=== PATIENT | female | born 1980 | race Caucasian/White ===

== ENCOUNTER 2020-08-29 19:31 | Emergency (ER) | payer MEDICAID, SELFPAY | END 2020-08-29 21:06 | disposition left against medical advice (07) | PROVIDERS: Emergency Provider Emergency Medicine | DX: M79.673 Pain in unspecified foot (principal) ==

== ENCOUNTER 2021-09-27 10:27 | Outpatient (REF) | payer MEDICAID, SELFPAY ==
[2021-09-27] MEDS: Barium Sulfate Oral (Mocha) 450 ML ORAL.SUSP 900 ML PO (14:32)
== END 2021-09-27 10:28 | disposition home or self-care (01) ==
LOC: HO.CT 10:27
PROVIDERS: PCP Emergency Medicine; Visit Provider Emergency Medicine
DX: R19.00 Intra-abdominal and pelvic swelling, mass and lump, unspecified site (principal)

== ENCOUNTER 2021-12-19 14:18 | Outpatient (REF) | payer MEDICAID, SELFPAY ==
--- NOTE | ~2021-12-19 | CT_ITS ---
EXAMINATION: CT ABDOMEN AND PELVIS WITH CONTRAST CLINICAL INFORMATION: Localized swelling, mass, lump COMPARISON: CT abdomen and pelvis noncontrast 03/31/2018 TECHNIQUE: Multidetector volumetric images were obtained from the superior aspect of the liver through the pubic symphysis following administration 85 mL of Omnipaque 350 intravenous contrast. Sagittal and coronal reformatted images were obtained on the technologist's workstation. Oral contrast: Yes This CT examination was performed using dose optimization techniques as appropriate, variously including the following: *Automated exposure control *Adjustment of mA and/or kV according to patient size (this includes techniques or standardized protocols for targeted exams where dose is matched to indication/reason for exam; i.e. extremities or head) *Use of iterative reconstruction technique DLP: 209 mGy-cm FINDINGS: LUNG BASES: The visualized lung bases are unremarkable. LIVER, GALLBLADDER, AND BILIARY TREE: Liver is smooth in contour and homogeneous. There is no focal hepatic parenchymal lesion or intrahepatic ductal dilatation. There is probable Omayra's lobe 20.5 cm in vertical dimension. The AP dimension is only 15 cm. The gallbladder is unremarkable with no evidence of radiopaque gallstones, gallbladder wall thickening, or obvious pericholecystic inflammatory changes. PANCREAS: Unremarkable. SPLEEN: Unremarkable. ADRENAL GLANDS: Unremarkable. KIDNEYS AND URETERS: The kidneys are normal in size, shape, and attenuation. No hydronephrosis, hydroureter, or calculi seen. No perinephric stranding. BLADDER: Unremarkable. GASTROINTESTINAL TRACT: Borderline sliding hiatal hernia. There is moderate stool throughout the colon. The appendix is normal. There is no bowel obstruction or focal intestinal inflammatory changes. Some trace ascites is present in the deep pelvis. No abdominal ascites or fluid collection. No pneumatosis or free air. ABDOMINAL WALL: There is a periumbilical hernia 11:00 position umbilicus from the umbilicus with fluid-filled hernia sac measuring 1.9 cm in thickness, 3.6 cm across, and 2.7 cm in vertical dimension. Abdominal wall defect is estimated at 1.2 cm. No groin hernia. LYMPH NODES: No lymphadenopathy. VASCULAR: Unremarkable. PELVIC VISCERA: Small amount of ascites in the cul-de-sac. Uterus is not clearly visualized similar to prior study, possible prior hysterectomy. No pelvic mass. OSSEOUS STRUCTURES: Unremarkable. CT/CT abdomen pelvis w con IMPRESSION: -Right superolateral fluid containing periumbilical hernia 1.9 x 3.6 x 2.7 cm. Abdominal wall defect estimated at 1.2 cm. -Trace pelvic ascites. No bowel obstruction or focal inflammatory changes. No adnexal mass. Fleischner guidelines were followed.
[2021-12-19] MEDS: iohexoL 350 MG/ML 100 ML INFUS..BTL IV (16:50)
[2021-12-19] MEDS: Barium Sulfate Oral (Vanilla) 450 ML ORAL.SUSP 900 ML PO (16:51)
== END 2021-12-19 14:19 | disposition home or self-care (01) ==
LOC: HO.CT 14:18
PROVIDERS: PCP Emergency Medicine; Visit Provider Emergency Medicine
DX: R22.2 Localized swelling, mass and lump, trunk (principal)
CPT/HCPCS: 74177; Q9967

== ENCOUNTER 2022-07-21 13:35 | Emergency (ER) | payer OTHER, SELFPAY ==
[2022-07-21 13:38] VITALS: BP 131/80; PULSE 92; RESP 18; TEMP 36.3; O2SAT 96; BMI 22.0
--- NOTE | 2022-07-21 13:39 | ED.GENADULT ---
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 (1+) H (Neg-Trace) mg/dL Urine Glucose (UA) Negative (Negative) mg/dL Urine Ketones Trace (Negative) mg/dL Urine Blood Negative (Negative) Urine Nitrite Negative (Negative) Ur Leukocyte Esterase Trace H (Negative) Urine RBC 3-5 H (0-2) /HPF Urine WBC 11-20 H (0-5) /HPF Ur Squamous Epith Cells 6-10 (0-2) /HPF Urine Bacteria None Seen (None Seen) Hyaline Casts 0-2 (0-2) /LPF Urine Test (NEGATIVE) Urine Opiates Screen (Not Detect) Urine Fentanyl Screen (Not Detect) Ur Barbiturates Screen (Not Detect) Ur Phencyclidine Scrn (Not Detect) Ur Amphetamines Screen (Not Detect) U Benzodiazepines Scrn (Not Detect) Urine Cocaine Screen (Not Detect) U Marijuana (THC) Screen (Not Detect) Ethyl Alcohol < 10 mg/dL COVID-19 (CAROLIN) (Negative) COVID-19 Clin Com <Yossi Quintero MD - Last Filed: 07/22/22 00:36> Discharge Plan Discharge Clinical Impression: Polysubstance abuse, Abdominal hernia <RHETT Mascorro - Last Filed: 07/21/22 13:46> Patient Disposition: Still a Patient <RHETT Mascorro - Last Filed: 07/21/22 13:46> Instructions: Inguinal Hernia (ED), Umbilical Hernia (ED), Polysubstance Abuse (ED) <RHETT Mascorro - Last Filed: 07/21/22 13:46> Prescriptions: No Action methadone 10 mg/mL Syringe 100 mg PO DAILY <RHETT Mascorro - Last Filed: 07/21/22 13:46>
[2022-07-21 14:11] LABS: MANUAL DIFF FLAG NO
[2022-07-21 14:16] LABS: Basophils Percent Auto 0.3 % (0-2); Eosinophils Percent Auto 0.3 % (0-4); Hematocrit 36.3 % (37.0-47.0); Hemoglobin 11.7 g/dl (12.0-16.0); Imm Gran Abs Auto 0.03 X10*3/uL (0.00-0.03); Imm Gran Pct Auto 0.4 % (0.0-0.4); Mean Corpuscular HGB Conc 32.2 g/dl (31.0-35.0); Mean Corpuscular Hemoglobin 26.5 pg (27.0-33.0); Mean Corpuscular Volume 82.1 fL (80.0-98.0); Mean Platelet Volume 8.8 fL (9.4-12.3); Monocytes Absolute Auto 0.8 X10*3/uL (0.1-1.2); Monocytes Percent Auto 9.9 % (2-11); Neutrophils Absolute Auto 4.7 x10*3/uL (2.0-8.3); Neutrophils Percent Auto 62.1 % (45-73); Platelet Count 232 X10*3/uL (160-400); Red Blood Count 4.42 X10*6/uL (4.20-5.50); Red Cell Distribution Width 14.2 % (11.0-16.0); White Blood Count 7.6 X10*3/uL (4.8-10.8)
[2022-07-21 14:19] LABS: Appearance Urine Turbid; Color Urine Dark Yellow; Glucose Urine UA Negative (Negative); Leukocyte Esterase Urine Small (1+) (Negative); Nitrite Urine Negative (Negative); PH 5.5 (5.0-9.0); Specific Gravity - Urine >= 1.030 (1.005-1.025); UMIC TRIGGER UACC YES; Urine Blood Negative (Negative); Urine Ketones Trace mg/dL (Negative); Urine Protein 30 (1+) mg/dL (Neg-Trace)
[2022-07-21 14:21] LABS: UPreg QC Valid YES; Urine Pregnancy NEGATIVE (NEGATIVE)
[2022-07-21 14:31] LABS: Amphetamine Screen Urine Not Detected (Not Detect); Barbiturates, Urine Not Detected (Not Detect); Benzodiazepines Screen Urine Not Detected (Not Detect); Cannabinoid Screen Urine Not Detected (Not Detect); Cocaine Screen Urine POSITIVE (Not Detect); Fentanyl, urine POSITIVE (Not Detect); Opiate Screen Urine POSITIVE (Not Detect); Phencyclidine Screen Urine Not Detected (Not Detect)
[2022-07-21 14:31] LABS: COVID-19 Test Negative (Negative); IDNOW Serial# BCCEAD1C
[2022-07-21 14:42] LABS: Alanine Aminotransferase 38 U/L (0-31); Alkaline Phosphatase 105 U/L (39-117); Anion Gap 13 (12-20); Aspartate Amino Transferase 36 U/L (5-31); Bilirubin Direct 0.2 mg/dL (0.0-0.5); Bilirubin Total 0.5 mg/dL (0.0-1.0); Blood Urea Nitrogen 14 mg/dL (9-16); Calcium 9.1 mg/dL (8.4-10.2); Carbon Dioxide 29 mmol/L (22-29); Chloride 104 mmol/L (96-108); Creatinine Clr Calc Pharmacy 101.9; Estimated Glomerular Filt Rate > 60; Glucose Random 114 mg/dL (60-115); Magnesium 1.7 mg/dL (1.6-2.6); Potassium 3.5 mmol/L (3.3-5.1); Sodium 142 mmol/L (135-145); Total Protein 7.6 g/dL (6.5-8.0)
[2022-07-21 14:43] LABS: Bacteria Urine 4+ (None Seen); RBC Urine 0-2 /HPF (0-2); Squamous Epithelial Cell Urine >20 /HPF (0-2); UACC Culture Trigger YES; WBC Urine 21-50 /HPF (0-5)
[2022-07-21 14:46] LABS: Ethanol < 10 mg/dL
[2022-07-21 16:41] VITALS: BP 132/64; PULSE 68; RESP 16; TEMP 37.1; O2SAT 98
--- NOTE | 2022-07-21 16:42 | MHC.EDTECH ---
THIS PCT ASSUMED CARE OF PATIENT AT 1640 ,VITALS SIGN TAKEN ,PROVIDER IN ROOM ,CALL CULVER WITHIN REACH .
[2022-07-21] MEDS: diazePAM 2 MG TABLET 4 MG PO (17:04)
[2022-07-21] MEDS: cloNIDine HCL 0.2 MG TABLET PO (17:04)
[2022-07-21] MEDS: Ondansetron ODT 4 MG TAB.RAPDIS TRANSLINGU (17:04)
--- NOTE | 2022-07-21 17:08 | PC.NURSE ---
Pt alert/oriented. Reports two abd hernias 8/10 pain. Also reports urinary sx including frequency, odor, and burning although been on Macrobid x 7 days. Also reports no bowel movement x 3 days. Denies n/v. Medicated as charted
[2022-07-21 17:23] LABS: Appearance Urine Clear; Color Urine Dark Yellow; Glucose Urine UA Negative (Negative); Leukocyte Esterase Urine Trace (Negative); Nitrite Urine Negative (Negative); PH 5.5 (5.0-9.0); Specific Gravity - Urine >= 1.030 (1.005-1.025); UMIC TRIGGER UACC YES; Urine Blood Negative (Negative); Urine Ketones Trace mg/dL (Negative); Urine Protein 30 (1+) mg/dL (Neg-Trace)
[2022-07-21 17:36] LABS: Bacteria Urine None Seen (None Seen); Hyaline Casts Urine 0-2 /LPF (0-2); UACC Culture Trigger YES
[2022-07-21 18:00] VITALS: BP 93/39; PULSE 58; RESP 16; TEMP 36.6; O2SAT 97
--- NOTE | 2022-07-21 18:00 | MHC.EDTECH ---
1800 ROUNDING AND VITALS SIGN DONE ,PATIENT ASKED FOR LEXIE SAMEERA ,PATIENT WATCHING TELEVISION ,CALL CULVER WITHIN REACH .
[2022-07-21] MEDS: Amoxicillin/Potassium Clav 875 MG TABLET PO (18:37)
--- NOTE | 2022-07-21 19:45 | MHC.RECOVSUP ---
? Reason for consult Recovery support o Current location: ED6 o Identified substance use concern: Heroin - Withdrawal - Seeking ATS (detox) - Support ? Intervention: o Community resources provided o Harm reduction discussion ? Plan: o Patient to follow up with [facility] after discharge ? Additional information: Patient seeking help to a ATS.. Patient has a bed pending at [facility].. Paper work being Fax by Care Team
[2022-07-21 19:56] VITALS: BP 94/41; PULSE 63; RESP 16; TEMP 36.6; O2SAT 97
--- NOTE | 2022-07-21 19:57 | MHC.EDTECH ---
2000 ROUNDING DONE ,PATIENT VITALS SIGN TAKEN ,PATIENT WATCHING TELEVISION ,ASKED FOR LEXIE SAMEERA AND [employer] .
--- NOTE | 2022-07-21 21:34 | MHC.CARE ---
T/W spoke with the [facility] who said that Kassidy's referral with be reviewed in the morning if accepted , they will call to speak with her tomorrow, so that the intake can be completed.
[2022-07-21 22:00] VITALS: BP 97/59; PULSE 70; RESP 16; TEMP 36.2; O2SAT 97
[2022-07-22] VITALS: BP 97/57; PULSE 67; RESP 13; TEMP 36.8; O2SAT 98
[2022-07-22 00:31] VITALS: BP 122/76
[2022-07-22] MEDS: Ondansetron ODT 4 MG TAB.RAPDIS TRANSLINGU (00:52)
[2022-07-22] MEDS: cloNIDine HCL 0.2 MG TABLET PO (00:52)
[2022-07-22] MEDS: LORazepam 1 MG TABLET 2 MG PO (00:52)
--- NOTE | 2022-07-22 01:33 | PC.NURSE ---
I assumed nursing care of Kassidy at 1900 from [facility]. The pt is currently holding in our ED as a search for a detox bed for her occurs. She has remained alert, oriented x 3, no chest pain, no SOB. SHe complains of opiate withdrawal symptoms - chills, restlessness, cold sweats, anxiety. She requested comfort meds for this and was given PO Clonidine, Ativan and Zofran per MD order. Pt is now sleeping - wakes to verbal stimuli. We will continue to monitor Kassidy.
[2022-07-22 07:07] VITALS: BP 92/42; PULSE 59; RESP 15; TEMP 36.7; O2SAT 98
[2022-07-22 07:20] VITALS: BP 106/47
--- NOTE | 2022-07-22 08:21 | HE.PHANOTE ---
Methadone verification received from ARCADIO Espinoza. Verified with Roxanne giles at [facility]. dose is 100 mg last dose 07/20/22
[2022-07-22] MEDS: methADONE HCl 20 MG/2 ML ORAL.CONC 100 MG PO (08:59)
[2022-07-22 09:05] VITALS: BP 111/65; PULSE 58; RESP 15; TEMP 36.7; O2SAT 97
[2022-07-22] MEDS: Acetaminophen 325 MG TABLET 650 MG PO (11:45)
--- NOTE | 2022-07-22 14:19 | MHC.RECOVRN ---
Patient has been accepted at [facility] detox, admission time 3:30pm, t/w will coordinate Lyft for patient.
== END 2022-07-22 15:24 | disposition other institution (70) ==
PROVIDERS: Physician Assistant; Emergency Provider Emergency Medicine; PCP Pediatrics
DX: F11.20 Opioid dependence, uncomplicated (principal); F19.10 Other psychoactive substance abuse, uncomplicated; K42.9 Umbilical hernia without obstruction or gangrene; K40.90 Unilateral inguinal hernia, without obstruction or gangrene, not specified as recurrent; Z20.822 Contact with and (suspected) exposure to COVID-19; F17.210 Nicotine dependence, cigarettes, uncomplicated
CPT/HCPCS: 80048; 80076; 80307; 81001; 81025; 82077; 83605; 83735; 85025; 87086; 87635; 99284